=== PATIENT | female | born 1980 | race Caucasian/White ===

== ENCOUNTER 2017-05-02 10:36 | Emergency (ER) | payer SELFPAY ==
[~2017-05-02] VITALS: Ht 170.2 cm; Wt 81.1 kg
[~2017-05-02 10:36] MED LIST: ADVIL200 MG PO; AMOXICILLIN500 M1 PO; Bactrim,Septra DS 80 PO; HYDROCODON-ACE1 EAC7 PO; K-DUR20 MEQ PO; MOTRIN800 MG PO; Motrin PO; NAPROSYN500 MG PO; PAXIL20 MG PO; PEPTO BISMOL240 ML PO; PERCOCET 5/31 TABLET PO; PHENERGAN25 MG PR; ULTRAM50 MG PO; ZOFRAN4 MG PO
[2017-05-02 11:41] LABS: HEMATOCRIT 39.7 % (36.0-46.0); HEMOGLOBIN 13.7 G/DL (11.9-15.5); MCH 34.6 PG (29.0-34.0); MCHC 34.5 G/DL (30.0-36.0); MCV 100.3 FL (83-99); PLATELET COUNT 146 K/uL (156-360); RBC DIS.WIDTH-CV 14.1 % (11.8-14.6); RBC DIS.WIDTH-SD 51.7 % (39-53); RED BLOOD COUNT 3.96 M/uL (3.80-5.20)
[2017-05-02 11:48] LABS: CHLORIDE 101 mEq/L (99-109); POTASSIUM 3.4 mEq/L (3.7-5.4); PTT 25.9 SEC (25-37); SODIUM 138 mEq/L (136-147)
[2017-05-02 11:50] LABS: GLUCOSE 113 mg/dL (70-99); TOTAL PROTEIN 6.8 g/dL (6.4-8.3)
[2017-05-02 11:52] LABS: TOTAL BILIRUBIN 0.9 mg/dL (0.0-1.0)
[2017-05-02 11:53] LABS: ALKALINE PHOSPHATASE 102 IU/L (3-129)
[2017-05-02 11:54] LABS: CREATININE 0.7 mg/dL (0.6-1.3); GFR ESTIMATE (CALCULATED) > 59 mL/min/
[2017-05-02 11:55] LABS: AST (GOT) 217 IU/L (2-34); UREA NITROGEN (BUN) 13 mg/dL (9-23)
[2017-05-02 11:56] LABS: ALT (GPT) 71 IU/L (3-49)
[2017-05-02 11:57] LABS: LIPASE 34 U/L (1.0-51.0)
[2017-05-02 12:03] LABS: QUANTITATIVE HCG < 4.0 MIU/ML
[2017-05-02 12:30] LABS: INTER. NORMALIZED RATIO 1.2
[2017-05-02] MEDS ORDERED: OMEPRAZOLE40 M1 PO (12:49)
[2017-05-02] MEDS ORDERED: ZOFRAN ODT4 MG PO (12:49)
[2017-05-02 13:00] LABS: APPEARANCE CLEAR ((CLEAR)); BILIRUBIN NEGATIVE; BLOOD NEGATIVE; COLOR YELLOW ((YELLOW)); GLUCOSE (STRIP) NEGATIVE; KETONES 5; LEUKOCYTES NEGATIVE; NITRITE NEGATIVE; PROTEIN (STRIP) NEGATIVE; SPECIFIC GRAVITY 1.019 (1.000-1.030); UROBILINOGEN 0.2 MG/DL (0.2-1.0)
[2017-05-02 13:32] VITALS: BP 135/67
== END 2017-05-02 13:33 | disposition home or self-care (01) ==
LOC: EME 10:36
PROVIDERS: Nurse Practitioner Family
DX: R11.2 Nausea with vomiting, unspecified (principal); R19.7 Diarrhea, unspecified; F10.20 Alcohol dependence, uncomplicated; R79.89 Other specified abnormal findings of blood chemistry; D69.6 Thrombocytopenia, unspecified; J45.909 Unspecified asthma, uncomplicated; F32.9 Major depressive disorder, single episode, unspecified; F17.200 Nicotine dependence, unspecified, uncomplicated
CPT/HCPCS: 80053; 81003; 83690; 84702; 85027; 85610; 85730; 99281; 99284; J1885; J2060; J2405; J7030

== ENCOUNTER 2017-09-29 12:24 | Emergency (ER) | payer SELFPAY ==
[~2017-09-29] VITALS: Ht 170.2 cm; Wt 73.9 kg
[~2017-09-29 12:24] MED LIST changes: +OMEPRAZOLE40 M1 PO; +ZOFRAN ODT4 MG PO
[2017-09-29] MEDS ORDERED: MOTRIN600 MG PO (14:14)
[2017-09-29 14:36] VITALS: BP 133/91
== END 2017-09-29 14:36 | disposition home or self-care (01) ==
LOC: EME 12:24
DX: S90.32XA Contusion of left foot, initial encounter (principal); W20.8XXA Other cause of strike by thrown, projected or falling object, initial encounter
CPT/HCPCS: 73630; 99281; 99284; J1885